=== PATIENT | male | born 1955 | race Hispanic/Latino ===

== ENCOUNTER 2017-10-21 10:57 | Emergency (ER) | payer MEDICARE, BC ==
[2017-10-21 10:58] VITALS: BMI 29.0
[2017-10-21 11:16] VITALS: TEMP 97.5
[2017-10-21] MEDS ORDERED: Pantoprazole 40 MG in Sodium Chloride 0.9% 100 ML IV STA (11:24)
[2017-10-21] MEDS ORDERED: Lactated Ringer's 500 ML in Lactated Ringer's 1,000 ML IV STA (11:24)
--- NOTE | 2017-10-21 11:28 | ED PDOC ---
Arrival/HPI - General Chief Complaint: Abdominal Pain Time Seen by Provider: 10/21/17 11:14 Historian: Patient - History of Present Illness Time/Duration: Other (Last night) Symptom Onset: Gradual Symptom Course: Worsening Quality: Cramping, Burning, Fullness Severity Level: Severe Activities at Onset: Rest Associated Symptoms (Text): 10/21/17 11:26 Patient complains of generalized abdominal pain along with nausea vomiting and diarrhea beginning last night. He has had multiple similar episodes over the last month. He was seen at another hospital emergency department one month ago and diagnosed with gastritis. He's been seen by his PMD and begun on omeprazole which is not helping. He reports that he stopped drinking one month ago. No chest pain palpitations or dyspnea. No genitourinary symptoms. No radiation of the pain. No fever or chills. No travel or exposure. Past Medical History - Provider Review Nursing Documentation Reviewed: Yes - Past History Past History: No Previous - Infectious Disease Hx of Infectious Diseases: None - Tetanus Immunization Tetanus Immunization: Up to Date - Cardiac Hx Hypertension: Yes - Pulmonary Hx Chronic Obstructive Pulmonary Disease (COPD): Yes - Neurological Hx Transient Ischemic Attacks (TIA): Yes - Hematological/Oncological Hx Blood Transfusions: No Hx Blood Transfusion Reaction: No - Psychiatric Hx Depression: Yes Hx Substance Use: No - Past Surgical History Past Surgical History: No Previous - Surgical History Hx Orthopedic Surgery: Yes (Left arm) - Anesthesia Hx Anesthesia: Yes Hx Anesthesia Reactions: No Hx Malignant Hyperthermia: No - Suicidal Assessment Feels Threatened In Home Enviroment: No Family/Social History - Physician Review Nursing Documentation Reviewed: Yes Family/Social History: Unknown Family HX Smoking Status: Heavy Smoker > 10 Cigarettes Daily Hx Alcohol Use: Yes Frequency of alcohol use: Socially Hx Substance Use: No Hx Substance Use Treatment: No Allergies/Home Meds Allergies/Adverse Reactions: Allergies No Known Allergies Allergy (Verified 10/21/17 11:16) Home Medications: Home Meds Medication Instructions Recorded Confirmed LORazepam [Ativan] 2 mg PO QID PRN 05/15/15 10/21/17 buPROPion XL [Wellbutrin] 150 mg PO DAILY 05/15/15 10/21/17 amLODIPine [Norvasc] 2.5 mg PO DAILY 10/21/17 10/21/17 traZODone [trazodone Hydrochloride] 150 mg PO HS 10/21/17 10/21/17 Review of Systems - Physician Review All systems were reviewed & negative as marked: Yes - Review of Systems Constitutional: absent: Fatigue, Fevers Respiratory: absent: SOB, Cough, Sputum, Wheezing Cardiovascular: absent: Chest Pain, Palpitations, Syncope Gastrointestinal: Abdominal Pain, Diarrhea, Nausea, Vomiting, Anorexia. absent : Constipation Genitourinary Male: absent: Dysuria, Frequency, Hematuria Neurological: absent: Headache, Dizziness Physical Exam Vital Signs Reviewed: Yes Vital Signs Temp Pulse Resp BP Pulse Ox 10/21/17 13:28 100 H 16 119/77 96 10/21/17 11:12 97.5 F L 112 H 20 148/85 99 Temperature: Afebrile Blood Pressure: Normal Pulse: Tachycardic Respiratory Rate: Normal Appearance: Positive for: Well-Appearing, Non-Toxic, Uncomfortable, Other ( Writhing about) Pain Distress: Severe Mental Status: Positive for: Alert and Oriented X 3 - Systems Exam Head: Present: Atraumatic, Normocephalic Pupils: Present: PERRL Extroacular Muscles: Present: EOMI Conjunctiva: Present: Normal Mouth: Present: Moist Mucous Membranes Pharnyx: No: ERYTHEMA, EXUDATE, TONSILS ENLARGED Neck: Present: Normal Range of Motion Respiratory/Chest: Present: Clear to Auscultation, Good Air Exchange, Decreased Breath Sounds. No: Respiratory Distress, Accessory Muscle Use Cardiovascular: Present: Regular Rate and Rhythm, Normal S1, S2, Tachycardic. No: Murmurs Abdomen: Present: Tenderness, Normal Bowel Sounds, Guarding (Generalized tenderness and generalized voluntary guarding with no rebound). No: Distention , Peritoneal Signs, Rebound Back: Present: Normal Inspection Upper Extremity: Present: Normal Inspection. No: Cyanosis, Edema Lower Extremity: Present: Normal Inspection. No: Edema Neurological: Present: GCS=15, CN II-XII Intact, Speech Normal, Motor Func Grossly Intact Skin: Present: Warm, Dry, Normal Color. No: Rashes Psychiatric: Present: Alert, Oriented x 3, Normal Insight, Normal Concentration Medical Decision Making ED Course and Treatment: 10/21/17 12:17 EKG shows normal sinus rhythm rate approximately [address] depressions different from the EKG of 06/12/2015. 10/21/17 13:25 Abdomen Ultrasound: Creator : Alexa Hunter MD FINDINGS: LIVER: Measures 16.8 cm in sagittal dimension and appears unremarkable. No focal hepatic mass identified. The main portal vein appears patent with normal directional flow. No intrahepatic bile duct dilatation. GALLBLADDER: Cholecystectomy. COMMON BILE DUCT: Measures 8 mm. PANCREAS: Not well visualized. RIGHT KIDNEY: Measures 10.9 x 4.3 x 5.3 cm. No obstructing calculus or hydronephrosis identified. LEFT KIDNEY: Measures 11.1 x 5.7 x 5.3 cm. No obstructing calculus or hydronephrosis identified. SPLEEN: Measures approximately 12.0 cm. AORTA: Limited views appear unremarkable. IVC: Limited views appear unremarkable. OTHER FINDINGS: None. IMPRESSION: Mildly dilated common bile duct in the setting of cholecystectomy. 10/21/17 13:35 Upon reevaluation the patient's symptoms have almost completely resolved. 10/21/17 13:40 Chest X-ray: Creator : Alexa Hunter MD COMPARISON: Chest x-ray performed 12/10/12 FINDINGS: LUNGS: Hyperinflation may be seen in the setting of COPD. Increased lucencies especially within the bilateral upper lung mandel compatible with underlying emphysema. No focal consolidation.Please note that chest x-ray has limited sensitivity for the detection of pulmonary masses. PLEURA: No significant pleural effusion identified. No definite pneumothorax . CARDIOVASCULAR: Heart size appears within normal limits. OSSEOUS STRUCTURES: Degenerative changes of the spine. VISUALIZED UPPER ABDOMEN: Unremarkable. OTHER FINDINGS: None. IMPRESSION: Findings consistent with COPD/emphysema. - Lab Interpretations Lab Results: 10/21/17 11:30 10/21/17 11:30 Lab Results 10/21/17 12:40: Urine Color Yellow, Urine Appearance Clear, Urine pH 5.5, Ur Specific [place] >= 1.030, Urine Protein 30 H, Urine Glucose (UA) Negative, Urine Ketones >=80, Urine Blood Trace-intact H, Urine Nitrate Negative, Urine Bilirubin Small H, Urine Urobilinogen 0.2, Ur Leukocyte Esterase Negative, Urine RBC 2 - 5, Urine WBC 0 - 2, Ur Epithelial Cells None, Amorphous Sediment Few, Urine Bacteria Mod, Hyaline Casts 0 - 2 10/21/17 11:30: Alcohol, Quantitative < 10 10/21/17 11:30: Sodium 143, Potassium 3.8, Chloride 105, Carbon Dioxide 22, Anion Gap 20, BUN 21, Creatinine 1.0, Est GFR ( Amer) > 60, Est GFR (Non- Af Amer) > 60, Random Glucose 185 H, Calcium 9.8, Total Bilirubin 1.2, AST 27, ALT 28, Alkaline Phosphatase 96, Lactate Dehydrogenase 451, Total Creatine Kinase 45, Troponin I < 0.01, Total Protein 7.9, Albumin 4.7, Globulin 3.2, Albumin/Globulin Ratio 1.5, Amylase 61, Lipase 125 10/21/17 11:30: PT 12.7 H, INR 1.15 H, APTT 27.6 10/21/17 11:30: WBC 7.4, RBC 4.72, Hgb 15.5, Hct 44.2, MCV 93.6, MCH 32.8, MCHC 35.1, RDW 13.5, Plt Count 150, MPV 9.8, Gran % 91.3 H, Lymph % (Auto) 5.2 L, [place] % (Auto) 3.4, Eos % (Auto) 0.1 L, Baso % (Auto) 0.0, Gran # 6.78 H, Lymph # 0.4 L, [place] # 0.3, Eos # 0.0, Baso # 0.00, Neutrophils % (Manual) 92 H, Band Neutrophils % 2, Lymphocytes % (Manual) 4 L, Atypical Lymphs % 1 H, Monocytes % (Manual) 1, Platelet Evaluation Normal - RAD Interpretation Radiology Orders: 10/21/17 11:24 CHEST ONE VIEW [RAD] Stat ABDOMEN COMPLETE [US] Stat Ultrasound of the abdomen is read by the radiologist shows a borderline dilated common bile duct, otherwise within normal limits. Chest one view shows no infiltrate or effusion or cardiomegaly. Conduit Cleaner: Radiologist - EKG Interpretation Interpreted by ED Physician: Yes Type: 12 lead EKG - Medication Orders Current Medication Orders: Discontinued Medications Lactated Ringer's 500 ml/ (Lactated Ringer's) 1,500 mls @ 1,000 mls/hr IV BOLUS STA Stop: 10/21/17 12:53 Last Admin: 10/21/17 11:48 Dose: 1,000 mls/hr eMAR Start Stop Document 10/21/17 11:48 SF (Rec: 10/21/17 11:48 SF [id number]) Intravenous Solution Start Date 10/21/17 Start Time 11:48 End Date 10/21/17 End time 13:18 Total Infusion Time 90 Pantoprazole Sodium 40 mg/ (Sodium Chloride) 100 mls @ 400 mls/hr IV STAT STA Stop: 10/21/17 11:38 Last Admin: 10/21/17 11:46 Dose: 400 mls/hr eMAR Start Stop Document 10/21/17 11:46 SF (Rec: 10/21/17 11:46 SF [id number]) Intravenous Solution Start Date 10/21/17 Start Time 11:46 End Date 10/21/17 End time 12:01 Total Infusion Time 15 Ketorolac Tromethamine (Toradol) 15 mg IVP STAT STA Stop: 10/21/17 11:25 Last Admin: 10/21/17 11:47 Dose: 15 mg MAR Pain Assessment Document 10/21/17 11:47 SF (Rec: 10/21/17 11:47 SF [id number]) Pain Reassessment Is this a pain reassessment? Yes Sleep Is patient sleeping during reassessment? No Presence of Pain Presence of Pain Yes Pain Scale Used Pain Scale Used Numeric Location Pain Location Body Site Abdomen Description Description Constant Intensity of Pain at present 10 Acceptable Level of Pain 7 Pain Behavior Rubbing Site Restlessness IVP Administration Document 10/21/17 11:47 SF (Rec: 10/21/17 11:47 SF [id number]) Charges for Administration # of IVP Administrations 1 Ondansetron HCl (Zofran Inj) 4 mg IVP STAT STA Stop: 10/21/17 11:25 Last Admin: 10/21/17 11:47 Dose: 4 mg IVP Administration Document 10/21/17 11:47 SF (Rec: 10/21/17 11:47 SF [id number]) Charges for Administration # of IVP Administrations 1 - Scribe Statement The provider has reviewed the documentation as recorded by the ScribBhavana Fitzpatrick Attestation: All medical record entries made by the Scribe were at my direction and personally dictated by me. I have reviewed the chart and agree that the record accurately reflects my personal performance of the history, physical exam, medical decision making, and the department course for this patient. I have also personally directed, reviewed, and agree with the discharge instructions and disposition. Disposition/Present on Arrival - Present on Arrival Any Indicators Present on Arrival: No History of DVT/PE: No History of Uncontrolled Diabetes: No Urinary Catheter: No History of Decub. Ulcer: No History Surgical Site Infection Following: None - Disposition Have Diagnosis and Disposition been Completed?: Yes Diagnosis: Abdominal pain, Nausea vomiting and diarrhea Disposition: HOME/ ROUTINE Disposition Time: 13:36 Patient Plan: Discharge Patient Problems: Current Active Problems Problem Status Onset Abdominal pain Acute Nausea vomiting and diarrhea Acute Condition: IMPROVED Discharge Instructions (ExitCare): Gastroenteritis (ED), Acute Nausea and Vomiting (ED), Acute Diarrhea (ED), Acute Abdominal Pain (ED) Prescriptions: Pantoprazole Sodium [Protonix] 40 mg PO DAILY #20 ect Ondansetron [Zofran Odt] 4 mg SL Q6 #20 odt Referrals: Tye Tyler DO [Primary Care Provider] - Follow up with primary Forms: [employer] [facility] ([place]ari)
[2017-10-21 11:50] LABS: EOS % 0.1 % (1.5-5.0); GRAN # 6.78 (1.4-6.5); GRAN % 91.3 % (50.0-68.0); HEMATOCRIT 44.2 % (42.0-52.0); LYMPH # 0.4 (1.2-3.4); LYMPH % 5.2 % (22.0-35.0); MEAN CELL VOLUME 93.6 fl (80.0-105.0); MEAN CORPUSCULAR HEMOGLOBIN 32.8 pg (25.0-35.0); MEAN CORPUSCULAR HGB CONC 35.1 g/dl (31.0-37.0); MEAN PLATELET VOLUME 9.8 fl (7.0-11.0); MONO # 0.3 (0.1-0.6); MONO % 3.4 % (1.0-6.0); PLATELET COUNT 150 10^3/uL (120.0-450.0); RED CELL DISTRIBUTION WIDTH 13.5 % (11.5-14.5); WHITE BLOOD COUNT 7.4 10^3/ul (4.5-11.0)
[2017-10-21 11:59] LABS: INR 1.15 (0.93-1.08); PARTIAL THROMBOPLASTIN TIME 27.6 Seconds (25.1-36.5)
[2017-10-21 12:01] LABS: ALB/GLOB RATIO 1.5 (1.1-1.8); ALKALINE PHOSPHATASE 96 U/L (38-126); ALT/SGPT 28 U/L (7-56); AMYLASE 61 U/L (35-125); AST/SGOT 27 U/L (17-59); BILIRUBIN,TOTAL 1.2 mg/dL (0.2-1.3); BLOOD UREA NITROGEN 21 mg/dL (7-21); CALCIUM 9.8 mg/dL (8.4-10.5); CARBON DIOXIDE 22 mmol/L (21-33); CHLORIDE 105 mmol/L (98-107); GFR AFRICAN-AMERICAN > 60; GLUCOSE,RANDOM 185 mg/dL (70-110); LIPASE 125 U/L (23-300); POTASSIUM 3.8 mmol/L (3.6-5.0); SODIUM 143 mmol/L (132-148); TOTAL PROTEIN 7.9 g/dL (5.8-8.3)
[2017-10-21 12:11] LABS: TROPONIN I < 0.01 ng/mL
[2017-10-21 12:32] LABS: ATYPICAL LYMPHOCYTE 1 % (0.0-0.0); BAND 2 % (0-2); NEUTROPHIL 92 % (50.0-70.0); PLATELET ESTIMATE NORMAL (NORMAL)
[2017-10-21 12:50] LABS: PH,URINE 5.5 (4.7-8.0); URINE BILIRUBIN SMALL (NEGATIVE); URINE BLOOD TRACE-INTACT (NEGATIVE); URINE GLUCOSE (UA) NEGATIVE (NEGATIVE); URINE KETONE >=80 mg/dL (NEGATIVE); URINE LEUKOCYTE ESTERASE NEGATIVE Leu/uL (NEGATIVE); URINE PROTEIN 30 mg/dL (<30 mg/dL); URINE UROBILINOGEN 0.2 E.U./dL (<1 E.U./dL)
[2017-10-21 13:20] LABS: URINE APPEARANCE CLEAR (CLEAR); URINE COLOR YELLOW (YELLOW)
--- NOTE | 2017-10-21 13:24 | US ---
HISTORY: pain COMPARISON: None available TECHNIQUE: Sonographic evaluation of the abdomen. FINDINGS: LIVER: Measures 16.8 cm in sagittal dimension and appears unremarkable. No focal hepatic mass identified. The main portal vein appears patent with normal directional flow. No intrahepatic bile duct dilatation. GALLBLADDER: Cholecystectomy. COMMON BILE DUCT: Measures 8 mm. PANCREAS: Not well visualized. RIGHT KIDNEY: Measures 10.9 x 4.3 x 5.3 cm. No obstructing calculus or hydronephrosis identified. LEFT KIDNEY: Measures 11.1 x 5.7 x 5.3 cm. No obstructing calculus or hydronephrosis identified. SPLEEN: Measures approximately 12.0 cm. AORTA: Limited views appear unremarkable. IVC: Limited views appear unremarkable. OTHER FINDINGS: None. IMPRESSION: Mildly dilated common bile duct in the setting of cholecystectomy.
[2017-10-21 13:26] LABS: URINE AMORPHOUS SEDIMENT FEW; URINE BACTERIA MOD (NEG); URINE WBC 0 - 2 /hpf (0-6)
--- NOTE | 2017-10-21 13:39 | RAD ---
HISTORY: ap COMPARISON: Chest x-ray performed 12/10/12 TECHNIQUE: Chest, one view. FINDINGS: LUNGS: Hyperinflation may be seen in the setting of COPD. Increased lucencies especially within the bilateral upper lung mandel compatible with underlying emphysema. No focal consolidation. Please note that chest x-ray has limited sensitivity for the detection of pulmonary masses. PLEURA: No significant pleural effusion identified. No definite pneumothorax . CARDIOVASCULAR: Heart size appears within normal limits. OSSEOUS STRUCTURES: Degenerative changes of the spine. VISUALIZED UPPER ABDOMEN: Unremarkable. OTHER FINDINGS: None. IMPRESSION: Findings consistent with COPD/emphysema.
[2017-10-21 13:55] VITALS: BP 120/81; PULSE 95; RESP 17; O2SAT 98
--- NOTE | 2017-10-21 14:31 | CARD ---
APPROVED REPORT EKG Measurement Heart [id number] <Conclusion> Normal sinus rhythm STTW changes c/w ischemia
== END 2017-10-21 13:55 | disposition home or self-care (01) ==
LOC: ED 10:57
DX: R11.2 Nausea with vomiting, unspecified (principal); R19.7 Diarrhea, unspecified; R10.9 Unspecified abdominal pain; I10 Essential (primary) hypertension; F17.210 Nicotine dependence, cigarettes, uncomplicated
CPT/HCPCS: 71010; 76700; 80053; 81001; 82150; 82550; 83615; 83690; 84484; 85025; 85610; 85730; 93005; 96361; 96374; 96375; 99285; C9113; G0480; J1885; J2405; J7120